=== PATIENT | male | born 1940 | race Two or more races ===

== ENCOUNTER → 2016-04-28 | Outpatient (CLI) | payer MEDICARE, BC ==
--- NOTE | 2016-04-28 12:40 | REP ---
Clinical: Chest pain. Technique: PA and lateral. Comparison: None. Findings: Mediastinum and cardiac silhouette are within normal limits. Lung odell demonstrate chronic-appearing changes. Trace left basilar atelectasis cannot be excluded. No effusion. No pneumothorax. Skeletal structures intact. Impression: Cannot exclude trace left basilar atelectasis. Signed by Zack Bingham MD 04/28/2016 12:32 P
== END ==
LOC: M LRY 11:53
PROVIDERS: ATTEND Nurse Practitioner Family
DX: R07.89 Other chest pain (principal)
CPT/HCPCS: 71020; 87081; 87804; 87880; 94640; G0463

== ENCOUNTER → 2016-08-19 | Outpatient (REF) | payer MEDICARE, BC ==
[2016-08-19 21:16] LABS: MEAN CORPUSCULAR HEMOGLOBIN 31.3 pg (27.0-33.0); MEAN CORPUSCULAR HGB CONC 33.1 g/dl (32.0-36.5); MEAN CORPUSCULAR VOLUME 94.6 fl (80.0-96.0); PLATELET COUNT, AUTOMATED 143 k/mm3 (150-450); RED CELL DISTRIBUTION WIDTH 12.9 % (11.5-14.5)
[2016-08-19 21:42] LABS: BANDS 4 % (< 11)
[2016-08-23 00:06] LABS: Lyme Disease IgG/IgM Antibodie <0.91 ISR (0.00-0.90); Lyme Disease IgM Ab Quantitati <0.80 index (0.00-0.79)
== END ==
LOC: M SFHCLERA 15:09
PROVIDERS: ATTEND Physician Assistant
DX: S30.860A Insect bite (nonvenomous) of lower back and pelvis, initial encounter (principal); W57.XXXA Bitten or stung by nonvenomous insect and other nonvenomous arthropods, initial encounter; R53.83 Other fatigue; M25.50 Pain in unspecified joint; Y92.9 Unspecified place or not applicable; Y93.9 Activity, unspecified; Y99.8 Other external cause status